=== PATIENT | male | born 1945 | race Caucasian/White ===

== ENCOUNTER 2018-04-25 09:26 | Day surgery (SDC) | payer MEDICARE ==
[2018-04-20 16:17] LABS: BASOPHILS % (AUTO) 0.6 % (0-1); EOSINOPHILS # (AUTO) 0.4 X10'3 (0-0.9); EOSINOPHILS % (AUTO) 7.3 % (0-6); LYMPHOCYTES # (AUTO) 1.8 X10'3 (1.1-4.8); MEAN CORPUSCULAR HEMOGLOBIN 30.8 PG (27.0-31.0); MEAN CORPUSCULAR VOLUME 90.4 FL (78-98); MEAN PLATELET VOLUME 8.3 FL (7.4-10.4); MONOCYTES # (AUTO) 0.6 X10'3 (0-0.9); MONOCYTES % (AUTO) 9.6 % (2-12); NEUTROPHILS % (AUTO) 51.5 % (42-75); PRE OP HEMATOCRIT 40.9 % (42.0-52.0); PRE OP HEMOGLOBIN 13.9 g/dL (14.0-17.9); PRE OP PLATELET COUNT 190 X10'3 (140-440); RED BLOOD COUNT 4.53 X10'6 (4.70-6.10); RED CELL DISTRIBUTION WIDTH 13.1 % (11.5-14.5)
[2018-04-20 16:23] LABS: CLARITY,URINE CLEAR (Clear); COLOR,URINE YELLOW (Yellow); GLUCOSE, URINE NEGATIVE (Neg); KETONES,URINE NEGATIVE (Neg); LEUKOCYTE ESTERASE ,URINE NEGATIVE (Neg); NITRITES, URINE NEGATIVE (Neg); OCCULT BLOOD,URINE NEGATIVE (Neg); PROTEIN,URINE TRACE mg/dl (Neg); UROBILINOGEN,URINE 0.2 E.U/dL (0.2-1.0)
[2018-04-20 16:26] LABS: UA COLLECTION TYPE VOIDED
[2018-04-20 16:35] LABS: BACTERIA,URINE NONE SEEN /HPF (Neg); MUCUS STRANDS NONE SEEN /LPF (Neg); RBC,URINE 0-2 /HPF (0-2); SQUAMOUS EPITHELIAL CELL,UR NONE SEEN /LPF (FEW); WBC,URINE 0-4 /HPF (0-4)
[2018-04-20 16:36] LABS: ALBUMIN 3.9 G/DL (3.4-5.0); ALBUMIN/GLOBULIN RATIO 1.1 (1.1-1.5); ALKALINE PHOSPHATASE 76 IU/L (46-116); BLOOD UREA NITROGEN 19 MG/DL (7-18); BUN/CREATININE RATIO 15.2 (5.4-32.0); CALCIUM 8.9 MG/DL (8.5-10.1); CHLORIDE 103 MMOL/L (99-107); CREATININE 1.25 MG/DL (0.60-1.10); PRE OP ALT 41 U/L (30-65); PRE OP ANION GAP 8 (8-16); PRE OP AST 24 U/L (10-37); PRE OP BILIRUB, TOTAL 0.4 MG/DL (0.0-1.0); PRE OP GLUCOSE 171 MG/DL (70-104); PRE OP POTASSIUM 4.2 MMOL/L (3.4-5.1); PRE OP SODIUM 139 MMOL/L (135-145); TOTAL CARBON DIOXIDE 27.6 MMOL/L (24-32); TOTAL PROTEIN 7.4 G/DL (6.4-8.2); eGFR 57 ML/MIN
[2018-04-20 16:36] LABS: HYALINE CASTS 0-3 /LPF (NEGATIVE)
[2018-04-25] VITALS (15 sets, daily range): BP systolic 138–198; BP diastolic 78–119
[~2018-04-25] VITALS: Ht 177.8 cm; Wt 107.3 kg
[~2018-04-25 09:26] MED LIST: CLINDAmcin 900mg/NS 50ml IVPB 50 ML IV ONE; FLO0.4C PO; GENTAMICIN IV ONE; IBUP-1986 PO; NORMAL SALINE IV ONE; OMEP20CA10 PO; famotidine 20mg tablet PO ONE; ringers solution, lacted 1,000 ML IV SCH
[2018-04-25] MEDS ORDERED: BUPIVAcaine/PF 2.5mg/ml (0.25%) 10ml vial ONE (12:20)
[2018-04-25] MEDS ORDERED: midazolam 2 mg/2 ml injection ONE (13:53)
[2018-04-25] MEDS ORDERED: rocuronium 10mg/ml inj IV ONE (13:54)
[2018-04-25] MEDS ORDERED: succinylcholine 20mg/ml inj IV ONE (13:54)
[2018-04-25] MEDS ORDERED: LIDOcaine 1%/PF 5ML 10 MG/ML VIAL ONE (13:54)
[2018-04-25] MEDS ORDERED: fentaNYL/PF 50MCG/1 ML 2ML syringe ONE (13:54)
[2018-04-25] MEDS ORDERED: propofol inj 20 ML IV ONE (13:54)
[2018-04-25] MEDS ORDERED: atropine 0.4 mg/ml 20ml vial ONE (14:22)
[2018-04-25] MEDS ORDERED: ringers solution, lacted 1,000 ML IV SCH (14:44)
[2018-04-25] MEDS ORDERED: meperidine/PF 25mg/ml syringe IV PRN (14:45)
[2018-04-25] MEDS ORDERED: ondansetron/PF 4mg/2ml inj IV PRN ×2 (14:45)
[2018-04-25] MEDS ORDERED: fentaNYL/PF 50MCG/1 ML 2ML syringe IV PRN (14:45)
[2018-04-25] MEDS ORDERED: proMETHazine 25mg rectal suppository RC PRN (14:45)
--- NOTE | 2018-04-25 14:55 | NUR ---
Received from OR via [facility] , accompanied by Anesthesiologist SHEA and report given by Anesthesiolgist. PATIENT WITH 20G PIV IN LEFT HAND RUNNING LR AT 100. DENIES PAIN. 3 ABDOMINAL LAP SITES PRESENT AND ARE CDI. 10L MASK ON WITH 100% SATURATIONS. Addendum: 04/25/18 at 1509 by Navin Roy RN, RN Amended: Links added.
[2018-04-25] MEDS ORDERED: labetalol 20mg/4ml (5mg/ml) syringe IV PRN ×2 (15:30→15:35)
[2018-04-25] MEDS ORDERED: hydrALAZINE 20mg/ml inj. IV PRN ×2 (15:30→15:35)
--- NOTE | 2018-04-25 16:45 | NUR ---
ALL DC CRITERIA HAS BEEN MET. PATIENT WITH PRESENT AND ALL DC INSTRUCTIONS COVERED. PATIENT DRESSINGS ARE CDI AT THIS TIME. PAIN AT A TOLERABLE LEVEL CURRENTLY. ASSISTED IN DRESSING PATIENT. TAKING PO FLUIDS WITH NO NAUSEA. OUT VIA WHEELCHAIR TO PERSONAL VEHICLE. Addendum: 04/25/18 at 1655 by Navin Roy RN, RN Amended: Links added.
[2018-04-25] MEDS ORDERED: acetaminophen 325mg tablet PO PRN (16:55)
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
== END 2018-04-25 17:05 | disposition home or self-care (01) ==
LOC: PAS 09:26
PROVIDERS: ATTEND Surgery
DX: K80.10 Calculus of gallbladder with chronic cholecystitis without obstruction (principal); K42.9 Umbilical hernia without obstruction or gangrene; I45.19 Other right bundle-branch block; K21.9 Gastro-esophageal reflux disease without esophagitis; N40.0 Benign prostatic hyperplasia without lower urinary tract symptoms; E66.9 Obesity, unspecified; Z87.891 Personal history of nicotine dependence; Z79.1 Long term (current) use of non-steroidal anti-inflammatories (NSAID); Z86.19 Personal history of other infectious and parasitic diseases; Z88.0 Allergy status to penicillin; Z79.899 Other long term (current) drug therapy; Z82.49 Family history of ischemic heart disease and other diseases of the circulatory system
CPT/HCPCS: 36415; 47562; 49652; 80053; 81001; 82948; 85025; 93005; A6255; J0330; J0360; J0461; J1580; J2001; J2250; J2704; J3010; J3490; J7030; A7000; J7120

== ENCOUNTER 2018-04-26 08:01 | Emergency (ER) | payer MEDICARE ==
[~2018-04-26] VITALS: Ht 177.8 cm; Wt 104.0 kg
[~2018-04-26 08:01] MED LIST changes: -CLINDAmcin 900mg/NS 50ml IVPB 50 ML IV ONE; -GENTAMICIN IV ONE; -NORMAL SALINE IV ONE; -famotidine 20mg tablet PO ONE; -ringers solution, lacted 1,000 ML IV SCH
[2018-04-26 09:13] VITALS: BP 160/78
== END 2018-04-26 09:37 | disposition home or self-care (01) ==
LOC: ER 08:01
DX: R33.9 Retention of urine, unspecified (principal); Z90.49 Acquired absence of other specified parts of digestive tract; Z88.0 Allergy status to penicillin; Z79.899 Other long term (current) drug therapy
CPT/HCPCS: 51702; 99284

== ENCOUNTER 2019-03-04 12:32 | Emergency (ER) | payer MEDICARE ==
[~2019-03-04] VITALS: Ht 177.8 cm; Wt 79.0 kg
[~2019-03-04 12:32] MED LIST changes: +OMEP-297 PO; -OMEP20CA10 PO
[2019-03-04 13:04] LABS: BASOPHILS # (AUTO) 0.1 X10'3 (0-0.2); BASOPHILS % (AUTO) 0.6 % (0-1); EOSINOPHILS # (AUTO) 0.1 X10'3 (0-0.9); EOSINOPHILS % (AUTO) 0.7 % (0-6); HEMOGLOBIN 10.7 g/dl (14.0-17.9); LYMPHOCYTES # (AUTO) 1.9 X10'3 (1.1-4.8); LYMPHOCYTES % (AUTO) 19.7 % (21-51); MEAN CORPUSCULAR HEMOGLOBIN 29.8 PG (27.0-31.0); MEAN CORPUSCULAR HGB CONC 33.5 g/dL (33.0-36.5); MEAN PLATELET VOLUME 8.5 FL (7.4-10.4); MONOCYTES # (AUTO) 0.7 X10'3 (0-0.9); MONOCYTES % (AUTO) 7.9 % (2-12); NEUTROPHILS # (AUTO) 6.7 X10'3 (1.8-7.7); NEUTROPHILS % (AUTO) 71.1 % (42-75); RED CELL DISTRIBUTION WIDTH 13.9 % (11.5-14.5); WHITE BLOOD COUNT 9.4 X10'3 (4.5-11.0)
[2019-03-04 13:15] LABS: PARTIAL THROMBOPLASTIN TIME 28 SECONDS (22-32)
[2019-03-04 13:17] LABS: ALANINE AMINOTRANSFERASE 14 U/L (12-78); ALBUMIN 2.7 G/DL (3.4-5.0); ALBUMIN/GLOBULIN RATIO 0.6 (1.1-1.5); ALKALINE PHOSPHATASE 70 IU/L (46-116); ANION GAP 8 (8-16); ASPARTATE AMINO TRANSFERASE 17 U/L (10-37); BILIRUBIN,TOTAL 0.4 MG/DL (0.1-1.0); BLOOD UREA NITROGEN 14 MG/DL (7-18); BUN/CREATININE RATIO 11.7 (5.4-32.0); CALCIUM 8.2 MG/DL (8.5-10.1); CHLORIDE 99 MMOL/L (99-107); GLUCOSE 117 MG/DL (70-104); SODIUM 139 MMOL/L (135-145); TOTAL CARBON DIOXIDE 32.5 MMOL/L (24-32); TOTAL PROTEIN 7.6 G/DL (6.4-8.2); eGFR 59 ML/MIN
[2019-03-04 13:18] LABS: POTASSIUM 2.5 MMOL/L (3.5-5.1)
[2019-03-04] MEDS ORDERED: potassium Cl 20 mEq SR tablet PO STA (13:40)
[2019-03-04] MEDS ORDERED: magnesium oxide 400mg tablet PO ONE (13:40)
[2019-03-04 13:43] LABS: PLATELET COUNT 298 X10'3 (140-440)
[2019-03-04 14:00] VITALS: BP 154/100
[2019-03-04] MEDS ORDERED: POTA20TA19 PO (14:55)
[2019-03-04] MEDS ORDERED: RIVA15TA PO (14:55)
== END 2019-03-04 15:09 | disposition home or self-care (01) ==
LOC: ER 12:33
DX: I82.C11 Acute embolism and thrombosis of right internal jugular vein (principal); E87.6 Hypokalemia; Z88.0 Allergy status to penicillin; Z79.899 Other long term (current) drug therapy; Z90.49 Acquired absence of other specified parts of digestive tract; Z98.890 Other specified postprocedural states
CPT/HCPCS: 36415; 80053; 85025; 85610; 85730; 93971; 99284